=== PATIENT | male | born 1960 | race Caucasian/White ===

== ENCOUNTER 2018-09-13 01:11 | Inpatient (IN) | payer BC ==
[~2018-09-13] VITALS: Ht 193 cm; Wt 202.8 kg
[2018-09-13] VITALS (8 sets, daily range): BP systolic 131–206
[2018-09-13] MEDS ORDERED: MET2.5 GT (02:33)
[2018-09-13] MEDS ORDERED: FOLI0.4T2 PO (02:33)
[2018-09-13] MEDS ORDERED: CHOL20004 PO (02:33)
[2018-09-13] MEDS ORDERED: ALLO100T PO (02:33)
[2018-09-13] MEDS ORDERED: ADAL40PE3 SQ (02:33)
[2018-09-13 02:36] LABS: HEMATOCRIT 51.9 % (36-54); HEMOGLOBIN 17.3 g/dL (14.0-18.0); MEAN CORPUSCULAR HEMOGLOBIN 32 pg (27-31); MEAN CORPUSCULAR HGB CONC 33 % (32-36); MEAN CORPUSCULAR VOLUME 97 fL (79.0-98.0); PLATELET COUNT (AUTO) 127 K/uL (130-430); RED BLOOD CELL COUNT(AUTO) 5.33 MIL/uL (4.2-6.2); RED CELL DISTRIBUTION WIDTH 14.8 % (9.0-15.0)
[2018-09-13 02:41] LABS: CALCIUM 8.8 mg/dL (8.4-11.0); CREATININE 1.27 mg/dL (0.55-1.30)
[2018-09-13 02:50] LABS: ALBUMIN 2.7 g/dL (3.4-4.8); TOTAL BILIRUBIN 0.9 mg/dL (0.0-1.0)
[2018-09-13] MEDS ORDERED: DILTIAZEM HCL 25 MG/5 ML VIAL IVP ONE (03:00)
[2018-09-13 03:02] LABS: BAND % (MANUAL) 4 % (0-6); BASOPHILS % (MANUAL) 0 % (0-2); EOSINOPHILS % (MANUAL) 0 % (0-7); LYMPHOCYTES % (MANUAL) 4 % (20-46); MONOCYTES % (MANUAL) 11 % (0-11)
[2018-09-13] MEDS ORDERED: DILTIAZEM HCL 25 MG/5 ML VIAL IVP PRN ×3 (04:15→06:30)
[2018-09-13] MEDS: ASPIRIN 81 MG TAB.CHEW PO SCH ×2 (04:15→08:38)
[2018-09-13] MEDS ORDERED: *HEPARIN PER PHARMACY XX ONE (04:15)
[2018-09-13] MEDS ORDERED: HEPARIN SODIUM,PORCINE 5000 UNITS/ML VIAL SUBCUT SCH (05:30)
[2018-09-13] MEDS ORDERED: cloNIDine HCL 0.2 MG TABLET PO PRN (05:30)
[2018-09-13] MEDS ORDERED: HEPARIN SODIUM,PORCINE 5000 UNITS/ML VIAL IVP SCH ×2 (05:30→06:10)
[2018-09-13 05:56] LABS: INR 1.2 (0.80-1.20); PROTHROMBIN TIME 11.9 SECS (9.5-12.5)
[2018-09-13] MEDS ORDERED: HEPARIN 25,000 UNITS/D5W 250ML 250 ML IV SCH (06:00)
[2018-09-13] MEDS ORDERED: HEPARIN SODIUM,PORCINE 3000 UNITS/0.6 ML BOLUS IVP PRN (09:15)
[2018-09-13] MEDS ORDERED: ALLOPURINOL 100 MG TABLET (ZYLOPRIM) PO ONE (09:45)
[2018-09-13] MEDS ORDERED: cloNIDine HCL 0.1 MG TABLET PO PRN (09:45)
[2018-09-13] MEDS ORDERED: FOLIC ACID 0.4 MG PO SCH (09:45)
[2018-09-13] MEDS ORDERED: METOPROLOL TARTRATE 50 MG TABLET PO ONE (09:45)
[2018-09-13] MEDS ORDERED: IPRATROPIUM/ALBUTEROL SULFATE 3 ML AMPUL.NEB (DUONEB) INH PRN (10:15)
[2018-09-13 10:24] LABS: BASOPHILS # (AUTO) 0.1 K/uL (0.0-0.2); BASOPHILS % (AUTO) 0.3 % (0.0-2.0); EOSINOPHILS % (AUTO) 0.1 % (0.0-4.0); HEMATOCRIT 54.2 % (36-54); LYMPHOCYTES # (AUTO) 0.5 K/uL (1.0-5.5); LYMPHOCYTES % (AUTO) 2.9 % (20.5-51.5); MEAN CORPUSCULAR HEMOGLOBIN 31 pg (27-31); MEAN CORPUSCULAR HGB CONC 31 % (32-36); MEAN CORPUSCULAR VOLUME 100 fL (79.0-98.0); MONOCYTES # (AUTO) 2.4 K/uL (0.0-1.0); MONOCYTES % (AUTO) 13.3 % (1.7-9.3); NEUTROPHILS # (AUTO) 15.1 K/uL (1.8-7.7); NEUTROPHILS % (AUTO) 83.4 % (40.0-70.0); PLATELET COUNT (AUTO) 140 K/uL (130-430); RED BLOOD CELL COUNT(AUTO) 5.42 MIL/uL (4.2-6.2); RED CELL DISTRIBUTION WIDTH 14.5 % (9.0-15.0); WHITE BLOOD COUNT (AUTO) 18.1 K/uL (4.8-10.8)
[2018-09-13 10:41] LABS: CALCIUM 9.2 mg/dL (8.4-11.0); CREATININE 1.2 mg/dL (0.55-1.30); POTASSIUM 4.5 mmol/L (3.5-5.1)
[2018-09-13 10:55] LABS: FREE T4 (FREE THYROXINE) 0.9 ng/dl (0.8-1.5); THYROID STIMULATING HORMONE 0.56 uIu/mL (0.36-3.74)
[2018-09-13] MEDS: cefTRIAXone 1 GM in D5W 50 ML IV SCH (13:15)
[2018-09-13] MEDS: IPRATROPIUM/ALBUTEROL SULFATE 3 ML AMPUL.NEB (DUONEB) INH SCH ×2 (13:59→19:52)
[2018-09-13] MEDS: LEVOFLOXACIN 500 MG/D5W 100 ML IV SCH (14:14)
[2018-09-13] MEDS: HEPARIN 25,000 UNITS in 250 ML PREMIX IV PRN ×2 (15:03→22:08)
[2018-09-13] MEDS: METOPROLOL TARTRATE 50 MG TABLET PO SCH (20:13)
[2018-09-13] MEDS: HEPARIN SODIUM,PORCINE 2000 UNITS/0.4 ML BOLUS IVP PRN (22:06)
[2018-09-14] MEDS: IPRATROPIUM/ALBUTEROL SULFATE 3 ML AMPUL.NEB (DUONEB) INH SCH ×3 (00:35→15:38)
[2018-09-14] MEDS: HEPARIN 25,000 UNITS in 250 ML PREMIX IV PRN ×2 (03:40→06:00)
[2018-09-14 04:35] LABS: HEMATOCRIT 52.1 % (36-54); MEAN CORPUSCULAR HEMOGLOBIN 32 pg (27-31); MEAN CORPUSCULAR HGB CONC 33 % (32-36); MEAN CORPUSCULAR VOLUME 98 fL (79.0-98.0); PLATELET COUNT (AUTO) 149 K/uL (130-430); RED BLOOD CELL COUNT(AUTO) 5.33 MIL/uL (4.2-6.2); RED CELL DISTRIBUTION WIDTH 14.5 % (9.0-15.0); WHITE BLOOD COUNT (AUTO) 14.5 K/uL (4.8-10.8)
[2018-09-14 04:38] LABS: TOTAL IRON BIND. CAPACITY 181 ug/dL (250-450)
[2018-09-14 04:42] LABS: ALBUMIN 2.4 g/dL (3.4-4.8); CREATININE 1.17 mg/dL (0.55-1.30); THYROID STIMULATING HORMONE 0.58 uIu/mL (0.34-4.82); TOTAL BILIRUBIN 0.5 mg/dL (0.0-1.0)
[2018-09-14 04:44] LABS: BASOPHILS % (AUTO) 0.2 % (0.0-2.0); EOSINOPHILS % (AUTO) 0.1 % (0.0-4.0); LYMPHOCYTES % (AUTO) 4.9 % (20.5-51.5); MONOCYTES % (AUTO) 16.4 % (1.7-9.3); NEUTROPHILS % (AUTO) 78.4 % (40.0-70.0)
[2018-09-14 04:45] LABS: LYMPHOCYTES # (AUTO) 0.7 K/uL (1.0-5.5); MONOCYTES # (AUTO) 2.4 K/uL (0.0-1.0); NEUTROPHILS # (AUTO) 11.4 K/uL (1.8-7.7)
[2018-09-14] MEDS: HEPARIN SODIUM,PORCINE 2000 UNITS/0.4 ML BOLUS IVP PRN (05:56)
[2018-09-14 08:00] VITALS: BP_SYST 147
[2018-09-14] MEDS ORDERED: APIXABAN 2.5 MG TABLET PO SCH (09:00)
[2018-09-14] MEDS ORDERED: ALLOPURINOL 100 MG TABLET (ZYLOPRIM) PO SCH (09:00)
[2018-09-14] MEDS: ASPIRIN 81 MG TAB.CHEW PO SCH (09:30)
[2018-09-14] MEDS: METOPROLOL TARTRATE 50 MG TABLET PO SCH (09:31)
[2018-09-14] MEDS ORDERED: TAMSULOSIN HCL 0.4 MG CAP PO ONE (11:45)
[2018-09-14] MEDS: LEVOFLOXACIN 500 MG/D5W 100 ML IV SCH (11:52)
[2018-09-14 11:55] LABS: BILIRUBIN,URINE NEGATIVE (NEGATIVE); BLOOD, URINE 3+ (NEGATIVE); CLARITY/URINE CLEAR (CLEAR); COLOR,URINE YELLOW (YELLOW); GLUCOSE,URINE NEGATIVE (NEGATIVE); KETONES,URINE NEGATIVE (NEGATIVE); LEUKOCYTE ESTERASE ,URINE 1+ (NEGATIVE); NITRITE, URINE NEGATIVE (NEGATIVE); PH,URINE 5.5 (5.0-8.0); PROTEIN URINE 1+ (NEGATIVE); UROBILINOGEN,URINE 0.2 (0.2-1.0)
[2018-09-14 12:05] LABS: BACTERIA,URINE FEW /HPF (None Seen); MUCUS,URINE 1+ /LPF (None Seen)
[2018-09-14] MEDS: cefTRIAXone 1 GM in D5W 50 ML IV SCH (12:13)
[2018-09-14 12:26] VITALS: BP_SYST 129
[2018-09-14] MEDS ORDERED: PHENAZOPYRIDINE HCL 100 MG TABLET PO SCH (12:30)
[2018-09-14] MEDS ORDERED: cefTRIAXone 1 GM in D5W 50 ML IV SCH (15:00)
[2018-09-14 17:16] VITALS: BP_SYST 147
[2018-09-14 17:20] VITALS: BP_SYST 142
[2018-09-14] MEDS ORDERED: TAMSULOSIN HCL 0.4 MG CAP PO SCH (21:00)
== END 2018-09-14 17:50 | disposition home or self-care (01) | DRG 191 ==
LOC: SED 01:11 → STU 04:01
PROVIDERS: ADMIT Internal Medicine; ATTEND Internal Medicine
DX: J44.1 Chronic obstructive pulmonary disease with (acute) exacerbation (principal); I24.8 Other forms of acute ischemic heart disease; Z68.43 Body mass index [BMI] 50.0-59.9, adult; E66.2 Morbid (severe) obesity with alveolar hypoventilation; D68.69 Other thrombophilia; I48.91 Unspecified atrial fibrillation; J44.0 Chronic obstructive pulmonary disease with (acute) lower respiratory infection; L40.50 Arthropathic psoriasis, unspecified; I10 Essential (primary) hypertension; W01.0XXA Fall on same level from slipping, tripping and stumbling without subsequent striking against object, initial encounter; G89.29 Other chronic pain; F17.210 Nicotine dependence, cigarettes, uncomplicated; J20.9 Acute bronchitis, unspecified; I87.8 Other specified disorders of veins; G47.33 Obstructive sleep apnea (adult) (pediatric); M06.9 Rheumatoid arthritis, unspecified; M10.9 Gout, unspecified; Z79.899 Other long term (current) drug therapy; Y93.89 Activity, other specified; Y92.89 Other specified places as the place of occurrence of the external cause; Y99.8 Other external cause status; Z87.442 Personal history of urinary calculi; Z79.82 Long term (current) use of aspirin
CPT/HCPCS: 36415; 36600; 71045; 80048; 80053; 80061; 81000-TC; 82803-TC; 83036; 83540-TC; 83550-TC; 83735-TC; 83880; 84439; 84443-TC; 84484; 85007; 85025; 85027; 85379; 85610-TC; 85730-TC; 87070-TC; 87086; 87205-TC; 93005; 93306; 93970; 94640; 94760; 96374; 99285; J0696; J1644; J1956; J3490; J7060; J7620

== ENCOUNTER 2019-06-20 16:19 | Emergency (ER) | payer BC ==
[~2019-06-20] VITALS: Ht 193 cm; Wt 210.0 kg
[~2019-06-20 16:19] MED LIST: ALLO100T PO; CHOL20004 PO; FOLI0.4T2 PO
[2019-06-20] MEDS ORDERED: NACL 0.9% 1,000 ML IV ONE ×3 (16:23→19:15)
[2019-06-20] MEDS ORDERED: ONDANSETRON HCL 4 MG/2 ML VIAL IVP ONE ×2 (16:30→19:15)
[2019-06-20] MEDS ORDERED: MORPHINE 4 MG/ML INJ. SYRINGE IVP ONE (16:30)
[2019-06-20 16:33] VITALS: BP_SYST 164
[2019-06-20 16:58] LABS: BILIRUBIN,URINE NEGATIVE (NEGATIVE); BLOOD, URINE NEGATIVE (NEGATIVE); CLARITY/URINE CLEAR (CLEAR); COLOR,URINE YELLOW (YELLOW); GLUCOSE,URINE NEGATIVE (NEGATIVE); KETONES,URINE NEGATIVE (NEGATIVE); LEUKOCYTE ESTERASE ,URINE NEGATIVE (NEGATIVE); NITRITE, URINE NEGATIVE (NEGATIVE); PH,URINE 7.5 (5.0-8.0); PROTEIN URINE NEGATIVE (NEGATIVE); UROBILINOGEN,URINE 0.2 (0.2-1.0)
[2019-06-20 17:09] LABS: BASOPHILS # (AUTO) 0.1 K/uL (0.0-0.2); BASOPHILS % (AUTO) 0.7 % (0.0-2.0); EOSINOPHILS # (AUTO) 0.4 K/uL (0.0-0.4); EOSINOPHILS % (AUTO) 4.1 % (0.0-4.0); HEMATOCRIT 47.4 % (36-54); HEMOGLOBIN 15.9 g/dL (14.0-18.0); LYMPHOCYTES # (AUTO) 2.3 K/uL (1.0-5.5); LYMPHOCYTES % (AUTO) 26.9 % (20.5-51.5); MEAN CORPUSCULAR HEMOGLOBIN 33 pg (27-31); MEAN CORPUSCULAR HGB CONC 34 % (32-36); MEAN CORPUSCULAR VOLUME 100 fL (79.0-98.0); MONOCYTES # (AUTO) 0.8 K/uL (0.0-1.0); MONOCYTES % (AUTO) 9.7 % (1.7-9.3); NEUTROPHILS % (AUTO) 58.6 % (40.0-70.0); PLATELET COUNT (AUTO) 200 K/uL (130-430); RED BLOOD CELL COUNT(AUTO) 4.75 MIL/uL (4.2-6.2); RED CELL DISTRIBUTION WIDTH 14.8 % (9.0-15.0); WHITE BLOOD COUNT (AUTO) 8.5 K/uL (4.8-10.8)
[2019-06-20 17:23] LABS: PROTHROMBIN TIME 10.3 SECS (9.5-12.5)
[2019-06-20 17:28] LABS: CALCIUM 8.9 mg/dL (8.4-11.0); CREATININE 1.07 mg/dL (0.55-1.30); POTASSIUM 4.5 mmol/L (3.5-5.1)
[2019-06-20 17:33] LABS: ALBUMIN 3.7 g/dL (3.4-4.8); TOTAL BILIRUBIN 0.4 mg/dL (0.0-1.0)
[2019-06-20 20:35] VITALS: BP_SYST 140
== END 2019-06-20 20:35 | disposition home or self-care (01) ==
LOC: SED 16:19
DX: K80.50 Calculus of bile duct without cholangitis or cholecystitis without obstruction (principal); I48.91 Unspecified atrial fibrillation; E66.01 Morbid (severe) obesity due to excess calories; M19.90 Unspecified osteoarthritis, unspecified site; I10 Essential (primary) hypertension; Z68.43 Body mass index [BMI] 50.0-59.9, adult; Z87.19 Personal history of other diseases of the digestive system; Z79.899 Other long term (current) drug therapy; Z87.891 Personal history of nicotine dependence
CPT/HCPCS: 36415; 71045; 76700; 80053; 81003; 82150; 82550; 83605; 83690; 84484; 85025; 85610; 85730; 87040; 93005; 96374; 96375; 96376; 99284; J2270; J2405; J7030

== ENCOUNTER 2019-08-14 06:10 | Inpatient (IN) | payer BC ==
[~2019-08-14] VITALS: Ht 193 cm; Wt 206.4 kg
[2019-08-14 06:25] VITALS: BP_SYST 146
[2019-08-14] MEDS ORDERED: ALLO300T2 PO (06:39)
[2019-08-14] MEDS ORDERED: APRE30TA2 PO (06:40)
[2019-08-14] MEDS ORDERED: ERGO500020 PO (06:50)
[2019-08-14] MEDS ORDERED: FOLI-43 PO (06:52)
[2019-08-14] MEDS ORDERED: METH2.5T PO (06:53)
[2019-08-14] MEDS ORDERED: METO-442 PO (06:54)
[2019-08-14] MEDS ORDERED: APIX5TAB4 PO (06:54)
[2019-08-14] MEDS ORDERED: VALS160T2 PO (06:55)
[2019-08-14] MEDS ORDERED: HYDR12.55 PO (06:57)
[2019-08-14] MEDS ORDERED: ASPI-1153 PO (06:58)
[2019-08-14] MEDS ORDERED: ALBMDI INH (06:58)
[2019-08-14] MEDS ORDERED: L.RH1CAP PO (06:58)
[2019-08-14] MEDS ORDERED: PANTOPRAZOLE SODIUM 40 MG/VIAL (PROTONIX) IVP ONE (07:00)
[2019-08-14] MEDS ORDERED: NACL 0.9% 1,000 ML IV ONE (07:15)
[2019-08-14 07:30] LABS: BASOPHILS # (AUTO) 0.1 K/uL (0.0-0.2); EOSINOPHILS # (AUTO) 0.2 K/uL (0.0-0.4); EOSINOPHILS % (AUTO) 2.8 % (0.0-4.0); HEMATOCRIT 40.9 % (36-54); HEMOGLOBIN 13.7 g/dL (14.0-18.0); LYMPHOCYTES # (AUTO) 1.3 K/uL (1.0-5.5); LYMPHOCYTES % (AUTO) 21.4 % (20.5-51.5); MEAN CORPUSCULAR HEMOGLOBIN 33 pg (27-31); MEAN CORPUSCULAR HGB CONC 34 % (32-36); MEAN CORPUSCULAR VOLUME 99 fL (79.0-98.0); MONOCYTES # (AUTO) 0.5 K/uL (0.0-1.0); MONOCYTES % (AUTO) 8.3 % (1.7-9.3); NEUTROPHILS # (AUTO) 3.9 K/uL (1.8-7.7); NEUTROPHILS % (AUTO) 66.5 % (40.0-70.0); PLATELET COUNT (AUTO) 185 K/uL (130-430); RED BLOOD CELL COUNT(AUTO) 4.12 MIL/uL (4.2-6.2); RED CELL DISTRIBUTION WIDTH 14.8 % (9.0-15.0); WHITE BLOOD COUNT (AUTO) 5.9 K/uL (4.8-10.8)
[2019-08-14 07:43] LABS: CALCIUM 8.7 mg/dL (8.4-11.0); CREATININE 1.08 mg/dL (0.55-1.30); POTASSIUM 4.5 mmol/L (3.5-5.1)
[2019-08-14 07:44] LABS: INR 1.1 (0.80-1.20)
[2019-08-14 07:55] LABS: ALBUMIN 3.6 g/dL (3.4-4.8); TOTAL BILIRUBIN 0.5 mg/dL (0.0-1.0)
[2019-08-14] MEDS ORDERED: DILTIAZEM HCL 25 MG/5 ML VIAL IVP ONE (08:30)
[2019-08-14 09:27] VITALS: BP_SYST 128
[2019-08-14] MEDS ORDERED: GOLYTELY / COLYTE SOLUTION 4 LITERS PO ONE (09:30)
[2019-08-14] MEDS ORDERED: ALBUTEROL SULFATE 0.083% 2.5 MG/3 ML VIAL.NEB INH PRN (10:30)
[2019-08-14 11:26] VITALS: BP_SYST 140
[2019-08-14 12:13] LABS: HEMATOCRIT 40.5 % (36-54); HEMOGLOBIN 13.2 g/dL (14.0-18.0)
[2019-08-14] MEDS ORDERED: BISACODYL 5 MG TABLET.DR (DULCOLAX) PO ONE (14:00)
[2019-08-14] MEDS: FOLIC ACID 1 MG TABLET PO SCH ×2 (15:14→21:01)
[2019-08-14 15:17] VITALS: BP_SYST 135
[2019-08-14] MEDS ORDERED: APREMILAST 30 MG PO ONE (17:15)
[2019-08-14 19:04] LABS: HEMATOCRIT 39.7 % (36-54); HEMOGLOBIN 12.9 g/dL (14.0-18.0)
[2019-08-14 20:35] VITALS: BP_SYST 129
[2019-08-14] MEDS: APREMILAST 30 MG PO SCH (21:00)
[2019-08-14] MEDS: METOPROLOL TARTRATE 50 MG TABLET PO SCH (21:04)
[2019-08-15 00:19] LABS: BASOPHILS # (AUTO) 0.1 K/uL (0.0-0.2); BASOPHILS % (AUTO) 0.9 % (0.0-2.0); EOSINOPHILS # (AUTO) 0.3 K/uL (0.0-0.4); EOSINOPHILS % (AUTO) 3.2 % (0.0-4.0); HEMATOCRIT 38.2 % (36-54); LYMPHOCYTES # (AUTO) 2.1 K/uL (1.0-5.5); LYMPHOCYTES % (AUTO) 24.6 % (20.5-51.5); MEAN CORPUSCULAR HEMOGLOBIN 34 pg (27-31); MEAN CORPUSCULAR HGB CONC 34 % (32-36); MEAN CORPUSCULAR VOLUME 100 fL (79.0-98.0); MONOCYTES # (AUTO) 0.8 K/uL (0.0-1.0); MONOCYTES % (AUTO) 9.4 % (1.7-9.3); NEUTROPHILS # (AUTO) 5.2 K/uL (1.8-7.7); NEUTROPHILS % (AUTO) 61.9 % (40.0-70.0); PLATELET COUNT (AUTO) 192 K/uL (130-430); RED BLOOD CELL COUNT(AUTO) 3.83 MIL/uL (4.2-6.2); WHITE BLOOD COUNT (AUTO) 8.4 K/uL (4.8-10.8)
[2019-08-15 02:09] VITALS: BP_SYST 127
[2019-08-15] MEDS ORDERED: MEPERIDINE HCL/PF 100 MG/ML AMP ONE ×2 (07:02→07:53)
[2019-08-15] MEDS ORDERED: MIDAZOLAM HCL 5 MG/5 ML VIAL ONE (07:02)
[2019-08-15] MEDS ORDERED: SIMETHICONE 40 MG/0.6 ML ML ONE (07:03)
[2019-08-15 07:10] LABS: INR 1.1 (0.80-1.20); PROTHROMBIN TIME 11.5 SECS (9.5-12.5)
[2019-08-15 07:53] LABS: ALBUMIN 3.3 g/dL (3.4-4.8); CALCIUM 8.4 mg/dL (8.4-11.0); CREATININE 0.95 mg/dL (0.55-1.30); POTASSIUM 4.6 mmol/L (3.5-5.1); THYROID STIMULATING HORMONE 1.04 uIu/mL (0.36-3.74); TOTAL BILIRUBIN 0.8 mg/dL (0.0-1.0)
[2019-08-15] MEDS: MIDAZOLAM HCL 5 MG/5 ML VIAL ONE ×2 (08:24→08:26)
[2019-08-15 09:30] VITALS: BP_SYST 167
[2019-08-15] MEDS ORDERED: HYDROCORTISONE ACETATE 1 SUPP (ANUSOL HC) RC ONE (09:30)
[2019-08-15 09:35] LABS: HEMATOCRIT 37.9 % (36-54); HEMOGLOBIN 12.5 g/dL (14.0-18.0)
[2019-08-15] MEDS: FOLIC ACID 1 MG TABLET PO SCH ×3 (10:04→21:07)
[2019-08-15] MEDS: ALLOPURINOL 300 MG TABLET (ZYLOPRIM) PO SCH (10:04)
[2019-08-15] MEDS: METOPROLOL TARTRATE 50 MG TABLET PO SCH ×2 (10:05→21:08)
[2019-08-15] MEDS: LOSARTAN POTASSIUM 50 MG TABLET (COZAAR) PO SCH (10:05)
[2019-08-15] MEDS: APREMILAST 30 MG PO SCH ×2 (10:06→21:08)
[2019-08-15 11:29] VITALS: BP_SYST 156
[2019-08-15 15:10] VITALS: BP_SYST 143
[2019-08-15 20:45] VITALS: BP_SYST 157
[2019-08-15] MEDS: HYDROCORTISONE ACETATE 1 SUPP (ANUSOL HC) RC SCH (21:00)
[2019-08-16] MEDS: MORPHINE 2 MG/ML INJ. SYRINGE IVP PRN ×3 (00:58→20:12)
[2019-08-16 01:01] VITALS: BP_SYST 140
[2019-08-16 04:24] LABS: BILIRUBIN,URINE NEGATIVE (NEGATIVE); BLOOD, URINE NEGATIVE (NEGATIVE); CLARITY/URINE CLEAR (CLEAR); COLOR,URINE YELLOW (YELLOW); GLUCOSE,URINE NEGATIVE (NEGATIVE); KETONES,URINE NEGATIVE (NEGATIVE); LEUKOCYTE ESTERASE ,URINE NEGATIVE (NEGATIVE); NITRITE, URINE NEGATIVE (NEGATIVE); PROTEIN URINE NEGATIVE (NEGATIVE); UROBILINOGEN,URINE 0.2 (0.2-1.0)
[2019-08-16 07:27] LABS: BASOPHILS # (AUTO) 0.1 K/uL (0.0-0.2); BASOPHILS % (AUTO) 0.8 % (0.0-2.0); EOSINOPHILS # (AUTO) 0.3 K/uL (0.0-0.4); EOSINOPHILS % (AUTO) 4.8 % (0.0-4.0); HEMATOCRIT 38.2 % (36-54); HEMOGLOBIN 12.9 g/dL (14.0-18.0); LYMPHOCYTES % (AUTO) 27.5 % (20.5-51.5); MEAN CORPUSCULAR HEMOGLOBIN 34 pg (27-31); MEAN CORPUSCULAR HGB CONC 34 % (32-36); MEAN CORPUSCULAR VOLUME 100 fL (79.0-98.0); MONOCYTES # (AUTO) 0.6 K/uL (0.0-1.0); MONOCYTES % (AUTO) 8.4 % (1.7-9.3); NEUTROPHILS # (AUTO) 4.2 K/uL (1.8-7.7); NEUTROPHILS % (AUTO) 58.5 % (40.0-70.0); PLATELET COUNT (AUTO) 182 K/uL (130-430); RED BLOOD CELL COUNT(AUTO) 3.84 MIL/uL (4.2-6.2); RED CELL DISTRIBUTION WIDTH 14.3 % (9.0-15.0); WHITE BLOOD COUNT (AUTO) 7.2 K/uL (4.8-10.8)
[2019-08-16 07:31] LABS: INR 1.1 (0.80-1.20); PROTHROMBIN TIME 10.8 SECS (9.5-12.5)
[2019-08-16 07:39] LABS: ALBUMIN 3.5 g/dL (3.4-4.8); CALCIUM 8.8 mg/dL (8.4-11.0); CREATININE 0.91 mg/dL (0.55-1.30); POTASSIUM 4.5 mmol/L (3.5-5.1); TOTAL BILIRUBIN 0.6 mg/dL (0.0-1.0)
[2019-08-16 08:06] VITALS: BP_SYST 143
[2019-08-16] MEDS: APREMILAST 30 MG PO SCH ×2 (08:15→20:11)
[2019-08-16] MEDS: ALLOPURINOL 300 MG TABLET (ZYLOPRIM) PO SCH (08:15)
[2019-08-16] MEDS: LOSARTAN POTASSIUM 50 MG TABLET (COZAAR) PO SCH (08:16)
[2019-08-16] MEDS: METOPROLOL TARTRATE 50 MG TABLET PO SCH ×2 (08:16→20:10)
[2019-08-16] MEDS: FOLIC ACID 1 MG TABLET PO SCH ×3 (08:16→20:10)
[2019-08-16] MEDS: HYDROCORTISONE ACETATE 1 SUPP (ANUSOL HC) RC SCH ×2 (08:17→20:11)
[2019-08-16 11:27] VITALS: BP_SYST 142
[2019-08-16] MEDS ORDERED: LR 1,000 ML IV.SOLN IV ONE (12:00)
[2019-08-16] MEDS ORDERED: ONDANSETRON HCL 4 MG/2 ML VIAL IVP ONE (12:00)
[2019-08-16] MEDS ORDERED: NS IRRIG SOLN 1000 ML IR ONE (12:00)
[2019-08-16] MEDS ORDERED: NEOSTIGMINE METHYLSULFATE 1 MG/ML, 10 ML VIAL IVP ONE (12:00)
[2019-08-16] MEDS ORDERED: GLYCOPYRROLATE 0.2 MG/ML VIAL IJ ONE (12:00)
[2019-08-16] MEDS ORDERED: BUPIVACAINE /EPINEPHRINE/PF 0.25% 30 ML VIAL INJ ONE (12:00)
[2019-08-16] MEDS ORDERED: PROPOFOL 200MG/ 20ML VIAL (DIPRIVAN) IV ONE (12:00)
[2019-08-16] MEDS ORDERED: MIDAZOLAM HCL 5 MG/5 ML VIAL IVP ONE (12:00)
[2019-08-16] MEDS ORDERED: fentaNYL CITRATE 250 MCG/5 ML AMP IV ONE (12:00)
[2019-08-16] MEDS ORDERED: SEVOFLURANE 15 MIN GAS INH ONE (12:00)
[2019-08-16] MEDS ORDERED: ROCURONIUM BROMIDE 10 MG/ML (ZEMURON) IV ONE (12:00)
[2019-08-16] MEDS ORDERED: LR 1,000 ML IV SCH (13:29)
[2019-08-16] MEDS ORDERED: HYDROmorphone 2 MG/ML VIAL IVP PRN (13:30)
[2019-08-16] MEDS ORDERED: HYDROmorphone 1 MG INJ. 1 MG/ML AMPUL IVP PRN ×2 (13:30)
[2019-08-16] MEDS ORDERED: METOCLOPRAMIDE HCL 10 MG/2 ML VIAL IVP PRN (13:30)
[2019-08-16] MEDS ORDERED: HYDROmorphone 2 MG/ML VIAL ONE (13:50)
[2019-08-16 14:30] VITALS: BP_SYST 147
[2019-08-16] MEDS ORDERED: ACETAMINOPHEN 500 MG TABLET PO PRN (19:30)
[2019-08-16 20:00] VITALS: BP_SYST 146
[2019-08-16] MEDS ORDERED: MORPHINE 4 MG/ML INJ. SYRINGE IVP PRN (22:15)
[2019-08-16] MEDS ORDERED: MORPHINE 2 MG/ML INJ. SYRINGE IVP PRN (22:15)
[2019-08-17] MEDS: HYDROmorphone 1 MG INJ. 1 MG/ML AMPUL IM PRN ×3 (00:26→08:47)
[2019-08-17 00:57] VITALS: BP_SYST 155
[2019-08-17] MEDS: ALLOPURINOL 300 MG TABLET (ZYLOPRIM) PO SCH (08:41)
[2019-08-17] MEDS: FOLIC ACID 1 MG TABLET PO SCH (08:42)
[2019-08-17] MEDS: LOSARTAN POTASSIUM 50 MG TABLET (COZAAR) PO SCH (08:42)
[2019-08-17] MEDS: APREMILAST 30 MG PO SCH (08:42)
[2019-08-17] MEDS: METOPROLOL TARTRATE 50 MG TABLET PO SCH (08:43)
[2019-08-17] MEDS ORDERED: TRAM50TA2 PO (10:31)
[2019-08-17 10:38] VITALS: BP_SYST 158
[2019-08-17 10:40] VITALS: BP_SYST 130
== END 2019-08-17 11:00 | disposition home or self-care (01) | DRG 348 ==
LOC: SED 06:10 → STU 08:19 → SMU 08-17 10:03
PROVIDERS: ADMIT Internal Medicine Cardiovascular Disease; ATTEND Internal Medicine Cardiovascular Disease
PROC: 0DBK8ZX Excision of Ascending Colon, Via Natural or Artificial Opening Endoscopic, Diagnostic (ICD-10-PCS; 2019-08-15)
PROC: 0DBL8ZX Excision of Transverse Colon, Via Natural or Artificial Opening Endoscopic, Diagnostic (ICD-10-PCS; 2019-08-15)
PROC: 0DBN8ZX Excision of Sigmoid Colon, Via Natural or Artificial Opening Endoscopic, Diagnostic (ICD-10-PCS; 2019-08-15)
PROC: 06LY0ZC Occlusion of Hemorrhoidal Plexus, Open Approach (ICD-10-PCS; 2019-08-16)
PROC: 06BY0ZC Excision of Hemorrhoidal Plexus, Open Approach (ICD-10-PCS; principal; 2019-08-16 14:00)
DX: K64.4 Residual hemorrhoidal skin tags (principal); Z68.43 Body mass index [BMI] 50.0-59.9, adult; K64.8 Other hemorrhoids; E66.01 Morbid (severe) obesity due to excess calories; F17.210 Nicotine dependence, cigarettes, uncomplicated; I10 Essential (primary) hypertension; I48.91 Unspecified atrial fibrillation; K63.5 Polyp of colon; L40.50 Arthropathic psoriasis, unspecified; M10.9 Gout, unspecified; Z87.442 Personal history of urinary calculi; Z79.82 Long term (current) use of aspirin; Z79.899 Other long term (current) drug therapy
CPT/HCPCS: 36415; 45380; 71045; 80053; 80061; 81003; 84443-TC; 85018-TC; 85025; 85610-TC; 85730-TC; 86886; 86900; 86901; 87081; 88304; 88305; 93005; 96361; 96374; 96375; 99285; C9113; G0378; J1170; J2175; J2250; J2270; J2405; J2704; J2710; J3010; J3490; J7030; J7040; J7120